=== PATIENT | female | born 1980 | race Caucasian/White ===

== ENCOUNTER 2023-11-14 13:16 | Emergency (ER) | payer SELFPAY ==
[~2023-11-14] VITALS: Ht 170.2 cm; Wt 81.6 kg
[2023-11-14] MEDS: IV NS 0.9% 1,000 ML BAG IV ONE (14:35)
[2023-11-14] MEDS ORDERED: SUMATRIPTAN SUCCINATE 6 MG/0.5 ML VIAL SQ ONE (14:38)
[2023-11-14] MEDS ORDERED: ONDANSETRON HCL/PF 4 MG/2 ML VIAL ONE (14:38)
[2023-11-14] MEDS ORDERED: diphenhydrAMINE HCL 50 MG/ML VIAL ONE (14:38)
[2023-11-14] MEDS: SUMATRIPTAN SUCCINATE 6 MG/0.5 ML VIAL SQ ONE (14:40)
[2023-11-14] MEDS: ONDANSETRON HCL/PF 4 MG/2 ML VIAL IVP ONE (14:42)
[2023-11-14] MEDS: diphenhydrAMINE HCL 50 MG/ML VIAL IV ONE (14:45)
[2023-11-14] MEDS ORDERED: PANTOPRAZOLE 40 MG VIAL ONE (14:50)
[2023-11-14] MEDS: PANTOPRAZOLE 40 MG VIAL IV ONE (14:53)
[2023-11-14 14:54] LABS: BASOPHILS % (AUTO) 0.4 % (0.0-2.0); HEMATOCRIT 36 % (33-45); HEMOGLOBIN 11.4 g/dL (11.5-14.8); LYMPHOCYTES # (AUTO) 0.6 K/uL (0.8-4.8); LYMPHOCYTES % (AUTO) 4.7 % (20.0-44.0); MEAN CORPUSCULAR HEMOGLOBIN 26 PG (26.0-33.0); MEAN CORPUSCULAR HGB CONC 32 g/dl (31.0-36.0); MEAN CORPUSCULAR VOLUME 80 fL (82-100); MONOCYTES # (AUTO) 0.2 K/uL (0.1-1.30); MONOCYTES % (AUTO) 1.6 % (2.0-12.0); NEUTROPHILS # (AUTO) 12.4 K/uL (1.8-8.9); NEUTROPHILS % (AUTO) 93.3 % (43.0-81.0); PLATELET COUNT (AUTO) 306 K/uL (150-450); RED BLOOD CELL COUNT(AUTO) 4.45 MIL/uL (4.0-5.2); RED CELL DISTRIBUTION WIDTH 17.1 % (11.5-15.0); WHITE BLOOD COUNT (AUTO) 13.3 K/uL (4.3-11.0)
[2023-11-14 15:56] LABS: CALCIUM, SERUM 8.9 mg/dL (8.5-10.1); CREATININE 0.8 mg/dL (0.6-1.3); POTASSIUM 4.1 mmol/L (3.5-5.1)
[2023-11-14 16:01] LABS: ALBUMIN 4.2 g/dL (3.4-5.0); BILIRUBIN,DIRECT 0.1 mg/dL (0.0-0.2); BILIRUBIN,TOTAL 0.5 mg/dL (0.2-1.0); TOTAL PROTEIN, SERUM 7.8 g/dL (6.4-8.2)
[2023-11-14] MEDS ORDERED: SUMA50TA PO (16:26)
[2023-11-14 16:50] VITALS: BP 118/80; TEMP 209.8; O2SAT 99
== END 2023-11-14 16:52 | disposition home or self-care (01) ==
LOC: ER 13:20
DX: G43.909 Migraine, unspecified, not intractable, without status migrainosus (principal)
CPT/HCPCS: 99284; 96374; 96375; 96361; 85025; 80048; 80076; 36415; 96372; J1200; J3030; J2405; J7030; C9113

== ENCOUNTER 2025-01-25 17:55 | Emergency (ER) | payer OTHER ==
[~2025-01-25] VITALS: Ht 165.1 cm; Wt 68.0 kg
[~2025-01-25 17:55] MED LIST: SUMA50TA PO
[2025-01-25] MEDS ORDERED: TDAP [DIPH/PERTUSSIS/TET] 0.5 ML VIAL IM ONE (18:41)
[2025-01-25] MEDS: IV NS 0.9% 1,000 ML BAG IV ONE (19:04)
[2025-01-25] MEDS: TDAP [DIPH/PERTUSSIS/TET] 0.5 ML VIAL IM ONE (19:04)
[2025-01-25 19:10] LABS: PLATELET COUNT (AUTO) 249 K/uL (150-450); RED BLOOD CELL COUNT(AUTO) 4.44 MIL/uL (4.0-5.2); RED CELL DISTRIBUTION WIDTH 14.7 % (11.5-15.0); WHITE BLOOD COUNT (AUTO) 10.8 K/uL (4.3-11.0)
[2025-01-25 19:22] LABS: CALCIUM, SERUM 9.0 mg/dL (8.5-10.1); CREATININE 0.7 mg/dL (0.6-1.3); SODIUM SERUM 139 mmol/L (136-145); UREA NITROGEN, BLOOD 18 mg/dL (7-18)
[2025-01-25 19:29] LABS: ASPARTATE AMINOTRANSFERASE 16 U/L (15-37); TOTAL PROTEIN, SERUM 7.5 g/dL (6.4-8.2)
[2025-01-25 19:36] LABS: ALCOHOL, BLOOD < 3 mg/dL (0-10)
[2025-01-25 20:09] LABS: INR 1.03 (0.91-1.10)
[2025-01-25] MEDS ORDERED: TRAM50TA2 PO (20:45)
[2025-01-25] MEDS ORDERED: HYDROCODONE/APAP 5/325MG TABLET ONE (21:19)
[2025-01-25] MEDS ORDERED: IBUPROFEN 600 MG TABLET ONE (21:19)
[2025-01-25 21:23] LABS: AMPHETAMINE, URINE NEGATIVE (NEGATIVE); BARBITURATE, URINE NEGATIVE (NEGATIVE); BENZODIAZEPINE, URINE NEGATIVE (NEGATIVE); CANNABINOID, URINE NEGATIVE (NEGATIVE); COCCAINE, URINE NEGATIVE (NEGATIVE); OPIATE, URINE NEGATIVE (NEGATIVE)
[2025-01-25] MEDS: IBUPROFEN 600 MG TABLET PO ONE (21:42)
[2025-01-25] MEDS: HYDROCODONE/APAP 5/325MG TABLET PO ONE (21:43)
[2025-01-25 22:10] VITALS: BP 115/84; TEMP 98.5; O2SAT 99
== END 2025-01-25 22:11 | disposition home or self-care (01) ==
LOC: ER 17:57
DX: S06.0X0A Concussion without loss of consciousness, initial encounter (principal); S01.81XA Laceration without foreign body of other part of head, initial encounter; S01.119A Laceration without foreign body of unspecified eyelid and periocular area, initial encounter; S60.512A Abrasion of left hand, initial encounter; S63.591A Other specified sprain of right wrist, initial encounter; S60.811A Abrasion of right wrist, initial encounter; M54.2 Cervicalgia; R10.2 Pelvic and perineal pain; R20.0 Anesthesia of skin; G43.909 Migraine, unspecified, not intractable, without status migrainosus; R55 Syncope and collapse; G89.29 Other chronic pain; Z88.7 Allergy status to serum and vaccine; V29.99XA Rider (driver) (passenger) of other motorcycle injured in unspecified traffic accident, initial encounter; Y93.55 Activity, bike riding; Y92.488 Other paved roadways as the place of occurrence of the external cause; Y99.8 Other external cause status
CPT/HCPCS: 12011; 29125; 36415; 70450; 71045; 72125; 73110; 73130; 80048; 80076; 80307; 80320; 84702; 85025; 85730; 87081; 90471; 90715; 93005; 96360; 99285; A6403; J7030; G0480

== ENCOUNTER 2025-01-30 13:26 | Emergency (ER) | payer OTHER ==
[~2025-01-30] VITALS: Ht 165.1 cm; Wt 63.5 kg
[~2025-01-30 13:26] MED LIST changes: +TRAM50TA2 PO
[2025-01-30 13:44] VITALS: BP 113/70; TEMP 98; O2SAT 97
== END 2025-01-30 15:14 | disposition home or self-care (01) ==
LOC: ER 14:52
DX: S01.111D Laceration without foreign body of right eyelid and periocular area, subsequent encounter (principal); G43.909 Migraine, unspecified, not intractable, without status migrainosus; Z48.02 Encounter for removal of sutures; Z88.7 Allergy status to serum and vaccine; X58.XXXD Exposure to other specified factors, subsequent encounter